=== PATIENT | male | born 1945 | race Two or more races ===

== ENCOUNTER 2025-04-04 09:18 | Outpatient (CLI) | payer OTHER | END 2025-04-04 09:28 | disposition home or self-care (01) | LOC: TOM 09:18 | PROVIDERS: ATTEND Internal Medicine Gastroenterology | DX: K62.5 Hemorrhage of anus and rectum (principal) ==

== ENCOUNTER 2025-06-27 18:10 | Emergency (ER) | payer OTHER ==
[~2025-06-27] VITALS: Ht 180.3 cm; Wt 104.3 kg
[2025-06-27] MEDS ORDERED: ISOSORBIDE MONO60 MG PO (18:28)
[2025-06-27] MEDS ORDERED: LIPITOR40 MG PO (18:28)
[2025-06-27] MEDS ORDERED: ZETIA10 MG PO (18:28)
[2025-06-27] MEDS ORDERED: ELIQUIS5 M1 PO (18:29)
[2025-06-27] MEDS ORDERED: GLIMEPIRIDE1 M1 PO (18:29)
[2025-06-27] MEDS ORDERED: SOTALOL80 MG PO (18:29)
[2025-06-27] MEDS ORDERED: JARDIANCE10 MG PO (18:29)
[2025-06-27] MEDS ORDERED: CASODEX50 MG PO (18:30)
[2025-06-27] MEDS ORDERED: PLAVIX75 MG PO (18:30)
[2025-06-27 19:43] LABS: BASO % 0.6 % (0.1-1.2); EOS # 0.11 (0.04-0.54); EOS % 3.5 % (0.7-7.0); LYMPH # 0.60 (1.18-3.74); LYMPH % 19.2 % (19.3-53.1); MEAN PLATELET VOLUME 9.50 fl (9.4-12.4); MONO # 0.52 (0.24-0.82); NEUT # 1.87 (1.56-6.13); NEUT % 59.8 % (34.0-71.1); RED CELL DISTRIBUTION WIDTH 13.2 % (11.6-14.4)
[2025-06-27 19:53] LABS: MONO % 16.6 % (4.7-12.5)
[2025-06-27 20:06] LABS: BUN CREA RATIO 17.0 (7.0-25.0); CREATININE SERUM 1.17 mg/dL (0.70-1.30); GFR 60.45; GLUCOSE FASTING 99.0 mg/dL (65-100); OSMOLALITY SERUM 288.0 MOSM/KG (275-295)
[2025-06-27 20:07] LABS: URINE APPEARANCE Clear; URINE BILIRRUBIN Negative (NEGATIVE); URINE BLOOD Negative; URINE COLOR Dark Yellow; URINE KETONE Negative (NEGATIVE); URINE LEUKOCYTE Negative; URINE NITRATE Positive; URINE PROTEIN Negative (NEGATIVE); URINE UROBILINOGEN 1.0 E.U./dl
[2025-06-27 20:11] LABS: URINE RBC 2.6 uL (0.0-20.8)
[2025-06-27 20:14] LABS: URINE BACTERIA 1.1 uL (0.0-1933); URINE CAST 0.00 uL (0.0-1.40); URINE EPITHELIAL CELLS 0.9 uL (0.0-38.8); URINE GLUCOSE >=1000 MG/DL (NEGATIVE); URINE WBC 0.4 uL (0.0-23.2)
== END 2025-06-28 01:52 | disposition home or self-care (01) ==
LOC: ER 18:10
PROVIDERS: General Practice
DX: N39.0 Urinary tract infection, site not specified (principal); E11.9 Type 2 diabetes mellitus without complications; Z79.84 Long term (current) use of oral hypoglycemic drugs; K57.90 Diverticulosis of intestine, part unspecified, without perforation or abscess without bleeding; Z85.46 Personal history of malignant neoplasm of prostate; I70.8 Atherosclerosis of other arteries